=== PATIENT | female | born 1980 | race Caucasian/White ===

== ENCOUNTER 2017-02-09 20:09 | Emergency (ER) | payer OTHER ==
--- NOTE | 2017-02-09 20:32 | ED Physician Documentation ---
PD HPI ABD PAIN - Stated complaint Stated Complaint: FEMALE /7 1/2 WK OB - Chief complaint Chief Complaint: Abd Pain - History obtained from History obtained from: Patient - History of Present Illness Timing - onset: Other (G1, 7.5 mweeks preg with light spotting and mild cramping today.) Review of Systems Ten Systems: 10 systems reviewed and negative Constitutional: denies: Fever, Chills Cardiac: denies: Chest pain / pressure, Palpitations Respiratory: denies: Dyspnea, Cough GI: denies: Abdominal Pain, Nausea, Vomiting PD PAST MEDICAL HISTORY - Past Medical History Endocrine/Autoimmune: Type 2 diabetes, HyPOthyroidism - Present Medications Home Medications: Ambulatory Orders Medication Instructions Recorded Confirmed Levothyroxine [Synthroid] 88 mcg PO QDAC 02/09/17 02/09/17 Pnv95/Ferrous Fumarate/FA 1 each PO DAILY 02/09/17 02/09/17 [ Formula] metFORMIN [Glucophage] 500 mg PO ONCE 02/09/17 02/09/17 - Allergies Allergies/Adverse Reactions: Allergies Allergy/AdvReac Type Severity Reaction Status Date / Time No Known Drug Allergies Allergy Verified 02/09/17 20:14 - Social History Does the pt smoke?: No Smoking Status: Never smoker Does the pt drink ETOH?: No Does the pt have substance abuse?: No - Immunizations Immunizations are current?: Yes PD ED PE NORMAL - Vitals Vital signs reviewed: Yes - General General: Alert and oriented X 3, No acute distress - Abdomen Abdomen: Soft, Non tender, Other (nonvisualization of IUP on bedside sono) - Derm Derm: Normal color, Warm and dry - Extremities Extremities: No edema, No calf tenderness / cord - Neuro Neuro: Alert and oriented X 3, Normal speech - Psych Psych: Normal mood, Normal affect Results - Vitals Vitals: Vital Signs - 24 hr 02/09/17 02/09/17 02/09/17 20:12 21:53 23:47 Temperature 35.8 C L Heart Rate 90 81 96 Respiratory 16 16 18 Rate Blood Pressure 136/78 H 131/70 H 149/102 H O2 Saturation 99 96 96 Oxygen O2 Source Room air - Labs Labs: Laboratory Tests 02/09/17 02/09/17 02/09/17 20:36 20:36 21:36 WBC 9.5 RBC 4.18 L Hgb 12.6 Hct 36.2 L MCV 86.6 MCH 30.2 MCHC 34.9 RDW 13.4 Plt Count 275 MPV 7.1 L Neut # 5.8 Lymph # 3.0 [place] # 0.5 Eos # 0.2 Baso # 0.1 Absolute Nucleated RBC 0.00 Nucleated RBCs 0.0 Sodium 137 Potassium 3.7 Chloride 102 Carbon Dioxide 28 Anion Gap 7.0 BUN 11 Creatinine 0.9 Estimated GFR (MDRD) 70 L Glucose 155 H Calcium 9.1 HCG, Quant 2193.00 Blood Type Blood Type Recheck 02/09/17 02/09/17 21:52 23:10 WBC RBC Hgb Hct MCV MCH MCHC RDW Plt Count MPV Neut # Lymph # [place] # Eos # Baso # Absolute Nucleated RBC Nucleated RBCs Sodium Potassium Chloride Carbon Dioxide Anion Gap BUN Creatinine Estimated GFR (MDRD) Glucose Calcium HCG, Quant Blood Type B POSITIVE Blood Type Recheck B POSITIVE - Rads (name of study) OB sono Radiology: Prelim report reviewed PD MEDICAL DECISION MAKING - ED course ED course: 36-year-old G1 with threatened , no evidence of ectopic , ultrasound as shown and results discussed with patient, she was given a copy of her ultrasound. Initially lab told me blood type was B- and rhophylac ordered, but then they rechecked and type was B+ and rhophylac was held. Departure - Departure Disposition: 01 Home, Self Care Clinical Impression: Threatened Condition: Good Record reviewed to determine appropriate education?: Yes Instructions: ED Miscarriage Poss Comments: Follow-up with your OB on return home, discuss potentially repeat ultrasound. Let him or her know that your blood type is B positive, and that your beta hCG was 2193. Your blood pressure was elevated today on check into the emergency department. This does not mean that you have hypertension, it is a common phenomenon to come to the emergency department and have elevated blood pressure. I recommend that she see her primary care physician within the week to have it rechecked when you are feeling better. Discharge Date/Time: 02/09/17 23:51
[2017-02-09 21:06] LABS: BASOPHILS # (AUTO) 0.1 10^3/uL (0.0-0.1); BASOPHILS % (AUTO) 0.7 %; EOSINOPHILS # (AUTO) 0.2 10^3/uL (0.0-0.7); EOSINOPHILS % (AUTO) 1.6 %; HCT - HEMATOCRIT 36.2 % (37.0-47.0); HGB - HEMOGLOBIN 12.6 g/dL (12.0-16.0); LYMPHOCYTES % (AUTO) 31.2 %; MEAN CORPUSCULAR HEMOGLOBIN 30.2 pg (27.0-31.0); MEAN CORPUSCULAR HGB CONC 34.9 g/dL (32.0-36.0); MEAN CORPUSCULAR VOLUME 86.6 fL (81.0-99.0); MEAN PLATELET VOLUME 7.1 fL (7.9-10.8); MONOCYTES # (AUTO) 0.5 10^3/uL (0.0-1.0); MONOCYTES % (AUTO) 5.4 %; NEUTROPHILS # (AUTO) 5.8 10^3/uL (1.5-6.6); NEUTROPHILS % (AUTO) 61.1 %; RED BLOOD COUNT 4.18 10^6/uL (4.20-5.40); RED CELL DISTRIBUTION WIDTH 13.4 % (12.0-15.0); UNCORRECTED WHITE BLOOD COUNT 9.5 x10^3/uL; WHITE BLOOD COUNT 9.5 x10^3/uL (4.8-10.8)
[2017-02-09 21:14] LABS: CALCIUM 9.1 mg/dL (8.5-10.3); CREATININE 0.9 mg/dL (0.4-1.0); POTASSIUM 3.7 mmol/L (3.5-5.0)
--- NOTE | 2017-02-09 22:15 | Ultrasound Preliminary Report ---
Exam: US OB First Trimester IMPRESSION: 1. Early intrauterine gestation with a 2 mm embryo seen but no heart rate detected. This is at the lo wer threshold for detecting a heart rate however and viable remains indeterminate. Suggest clinical and 12 week follow-up ultrasound to ensure viability of and for more accurate torrey ing. 2. No adnexal masses identified to suggest ectopic/heterotopic . [facility] SITE ID: [id number]
--- NOTE | 2017-02-09 22:18 | Ultrasound Report ---
REVISED: THIS REPORT WAS ORIGINALLY SIGNED ON 02/09/2017 @ 2218. ORDERS LINKED ON 02/22/2017. EXAM: FIRST TRIMESTER OBSTETRIC ULTRASOUND (Less than 11 weeks) EXAM DATE: 02/09/2017 09:44 PM. CLINICAL HISTORY: Pain, vaginal bleeding, LMP: 12/18/2016, 7 weeks 4 days. COMPARISONS: None. TECHNIQUE: Transabdominal and transvaginal ultrasound examination with static image documentation. FINDINGS: Gestational Sac: An intrauterine fluid-filled sac contains both an embryo and yolk sac. Tiny subchorionic bleed. Embryo: CRL (crown-rump length) measures 2 mm corresponding to an estimated gestational age of 6 weeks 0 days. Heart Rate: 0 beats per minute. Placenta: Not visible at this gestational age. Amniotic fluid: Not accurately assessed at this gestational age. Uterus: Unremarkable anteverted appearance. Right Ovary: Volume 6 cc. Normal echotexture and blood flow. Left Ovary: Volume 6 cc. Normal echotexture and blood flow. Free Fluid: None. Other: None. IMPRESSION: 1. Early intrauterine gestation with a 2 mm embryo seen but no heart rate detected. This is at the lower threshold for detecting a heart rate however and viable remains indeterminate. Suggest clinical and 12 week follow-up ultrasound to ensure viability of and for more accurate dating. 2. No adnexal masses identified to suggest ectopic/heterotopic . [facility] Referring Provider Line: [phone] SITE ID: [id number]
[2017-02-09] MEDS ORDERED: RHO(D) IMMUNE GLOBULIN 300 MCG SYRINGE IM ONE (22:40)
[2017-02-09 23:51] VITALS: BP 149/102
== END 2017-02-09 23:51 | disposition home or self-care (01) ==
LOC: ED 20:09
DX: O20.0 Threatened abortion (principal); Z3A.01 Less than 8 weeks gestation of pregnancy
CPT/HCPCS: 36415; 76801; 76817; 80048; 81001; 81003; 84702; 85025; 86900; 86901; 87086; 96372; 99283